=== PATIENT | male | born 1995 | race Caucasian/White ===

== ENCOUNTER 2022-05-08 15:33 | Inpatient (IN) | payer MEDICAID ==
[~2022-05-08] VITALS: Ht 180.3 cm; Wt 79.8 kg
[2022-05-08 17:30] LABS: HEMATOCRIT 45.6 % (42.0-52.0); HEMOGLOBIN 14.8 g/dl (13.5-17.5); MEAN CORPUSCULAR HEMOGLOBIN 28.4 pg (27.0-33.0); MEAN CORPUSCULAR HGB CONC 32.5 g/dl (32.0-36.5); MEAN CORPUSCULAR VOLUME 87.4 fl (80.0-96.0); PLATELET COUNT, AUTOMATED 231 10^3/uL (150-450); RED BLOOD COUNT 5.22 10^6/uL (4.30-6.10); WHITE BLOOD COUNT 6.8 10^3/uL (4.0-10.0)
[2022-05-08] MEDS ORDERED: LORazepam 2 MG TAB PO ONE (17:50)
[2022-05-08 17:51] LABS: BARBITURATES URINE NEGATIVE (NEGATIVE); BENZODIAZEPINES URINE NEGATIVE (NEGATIVE)
[2022-05-08 17:52] LABS: COCAINE METABOLITE URINE NEGATIVE (NEGATIVE); METHADONE URINE NEGATIVE (NEGATIVE); OPIATES URINE NEGATIVE (NEGATIVE); PHENCYCLIDINE URINE NEGATIVE (NEGATIVE)
[2022-05-08 17:53] LABS: ETHYL ALCOHOL (ETHANOL) 0.005 % (0.000-0.010)
[2022-05-08 17:55] LABS: ACETAMINOPHEN LEVEL < 2.0 UG/ML (10.0-20.0); ALBUMIN 3.9 G/DL (3.2-5.2); ALKALINE PHOSPHATASE 62 U/L (46-116); ALT/SGPT 19 U/L (7.0-40); AST/SGOT 17 U/L (<34); BILIRUBIN,DIRECT 0.1 MG/DL (<0.4); BILIRUBIN,TOTAL 0.4 MG/DL (0.3-1.2); BLOOD UREA NITROGEN 18 MG/DL (9-23); CALCIUM LEVEL 9.4 MG/DL (8.5-10.1); CARBON DIOXIDE LEVEL 30 MMOL/L (20-31); CHLORIDE LEVEL 103 MMOL/L (98-107); CREATININE FOR GFR 0.81 MG/DL (0.70-1.30); GLOMERULAR FILTRATION RATE > 60.0 (>60); GLUCOSE, FASTING 109 MG/DL (60-100); POTASSIUM SERUM 4.2 MMOL/L (3.5-5.1); SALICYLATE LEVEL < 3.0 MG/DL (<30); SODIUM LEVEL 138 MMOL/L (136-145); TOTAL PROTEIN 7.1 G/DL (5.7-8.2)
[2022-05-08 17:56] LABS: AMPHETAMINES LEVEL URINE POSITIVE (NEGATIVE); CANNABINOIDS URINE POSITIVE (NEGATIVE)
[2022-05-08 17:59] LABS: THYROID STIMULATING HORMONE 0.998 uIU/ML (0.55-4.78)
[2022-05-08 18:02] LABS: RSV AMPLIFICATION NEGATIVE (NEGATIVE)
[2022-05-08] MEDS ORDERED: HOME MED LIST COMPLETE! XX SCH (19:10)
[2022-05-09] MEDS ORDERED: MAALOX 30 ML SUSP *UDC PO PRN (00:15)
[2022-05-09] MEDS ORDERED: ACETAMINOPHEN TAB 650MG DOSE (2X325MG) PO PRN (00:15)
[2022-05-09] MEDS ORDERED: traZODone 50 MG TAB PO PRN (00:15)
[2022-05-09] MEDS ORDERED: OLANZapine ORAL DISINTEGRATING TAB 5MG PO PRN (00:15)
[2022-05-09] MEDS ORDERED: MOM 30ML SUSPENSION UDC PO PRN (00:15)
[2022-05-09 01:36] VITALS: BP 111/70
[2022-05-09 18:14] VITALS: BP 133/67
[2022-05-10] MEDS ORDERED: ONDANSETRON 4MG TAB PO PRN (08:05)
[2022-05-10] MEDS ORDERED: IBUPROFEN 600MG TAB PO PRN (08:05)
[2022-05-10] MEDS ORDERED: CYCLOBENZAPRINE 10MG TABLET PO PRN (08:05)
[2022-05-10] MEDS ORDERED: cloNIDine HCL 0.1 MG/24 HR PATCH TOP SCH (09:00)
[2022-05-10] MEDS ORDERED: INFLUENZA QUADRIVALENT PF VACCINE 0.5ML SYRINGE IM.IMMUN ONE (09:00)
[2022-05-10] MEDS: hydrOXYzine 50 MG TAB PO PRN (10:17)
[2022-05-10 10:20] VITALS: BP 130/81
[2022-05-10 15:11] VITALS: BP 130/60
[2022-05-11 06:27] VITALS: BP 138/76
[2022-05-11 19:53] VITALS: BP 154/67
[2022-05-11] MEDS: risperiDONE 3 MG TAB PO SCH (21:17)
[2022-05-12 06:23] VITALS: BP 130/74
[2022-05-12] MEDS: LORazepam 1 MG TAB PO PRN (14:37)
[2022-05-12 18:28] VITALS: BP 127/60
[2022-05-12] MEDS: risperiDONE 3 MG TAB PO SCH (20:59)
[2022-05-13 06:51] VITALS: BP 122/80
[2022-05-13] MEDS: LORazepam 1 MG TAB PO PRN ×2 (10:05→16:06)
[2022-05-13 18:08] VITALS: BP 114/79
[2022-05-13] MEDS: risperiDONE 3 MG TAB PO SCH (21:50)
[2022-05-14 06:44] VITALS: BP 115/69
[2022-05-14] MEDS: hydrOXYzine 50 MG TAB PO PRN (09:00)
[2022-05-14 16:20] VITALS: BP 130/68
[2022-05-14] MEDS: risperiDONE 3 MG TAB PO SCH (20:02)
[2022-05-15 06:28] VITALS: BP 108/59
[2022-05-15] MEDS ORDERED: RISP-10 PO (08:46)
[2022-05-15] MEDS ORDERED: INVE234I IM (08:46)
[2022-05-15] MEDS ORDERED: PALIPERIDONE PAL 234MG/1.5ML INJ (INVEGA)(FREE PSY INPT ONLY) IM ONE (09:00)
== END 2022-05-15 10:49 | disposition home or self-care (01) | DRG 753 ==
LOC: M ED 15:33 → M ED INP 05-09 00:11 → M PSY 05-09 01:34
PROVIDERS: ADMIT Psychiatry & Neurology Psychiatry; ATTEND Psychiatry & Neurology Psychiatry
DX: F31.9 Bipolar disorder, unspecified (principal); F17.200 Nicotine dependence, unspecified, uncomplicated; F15.90 Other stimulant use, unspecified, uncomplicated

== ENCOUNTER 2022-08-10 15:31 | Inpatient (IN) | payer MEDICAID, OTHER, SELFPAY ==
[~2022-08-10] VITALS: Ht 180.3 cm; Wt 84.1 kg
[~2022-08-10 15:31] MED LIST: INVE234I IM; RISP-10 PO
[2022-08-10 17:04] LABS: BASO % 0.3 % (0.0-1.0); HEMATOCRIT 42.3 % (42.0-52.0); HEMOGLOBIN 14.5 g/dl (13.5-17.5); LYMPH # 0.4 10^3/uL (1.5-5.0); LYMPH % 3.4 % (24.0-44.0); MEAN CORPUSCULAR HEMOGLOBIN 28.4 pg (27.0-33.0); MEAN CORPUSCULAR HGB CONC 34.3 g/dl (32.0-36.5); MEAN CORPUSCULAR VOLUME 82.8 fl (80.0-96.0); MONO # 0.9 10^3/uL (0.0-0.8); MONO % 7.5 % (2.0-8.0); NEUTROPHILS # 10.3 10^3/uL (1.5-8.5); NEUTROPHILS % 88.3 % (36.0-66.0); RED BLOOD COUNT 5.11 10^6/uL (4.30-6.10); WHITE BLOOD COUNT 11.6 10^3/uL (4.0-10.0)
[2022-08-10 17:41] LABS: RSV AMPLIFICATION NEGATIVE (NEGATIVE)
[2022-08-10] MEDS ORDERED: ACETAMINOPHEN 500 MG TAB PO ONE (17:45)
[2022-08-10 18:09] LABS: ALBUMIN 3.1 G/DL (3.2-5.2); ALKALINE PHOSPHATASE 62 U/L (46-116); ALT/SGPT 19 U/L (7.0-40); AST/SGOT 17 U/L (<34); BILIRUBIN,DIRECT 0.3 MG/DL (<0.4); BILIRUBIN,TOTAL 0.8 MG/DL (0.3-1.2); BLOOD UREA NITROGEN 14 MG/DL (9-23); CALCIUM LEVEL 8.1 MG/DL (8.5-10.1); CARBON DIOXIDE LEVEL 26 MMOL/L (20-31); CHLORIDE LEVEL 88 MMOL/L (98-107); CREATININE FOR GFR 0.92 MG/DL (0.70-1.30); GLOMERULAR FILTRATION RATE > 60.0 (>60); GLUCOSE, FASTING 128 MG/DL (60-100); POTASSIUM SERUM 3.9 MMOL/L (3.5-5.1); SODIUM LEVEL 122 MMOL/L (136-145); TOTAL PROTEIN 6.3 G/DL (5.7-8.2)
[2022-08-11] MEDS ORDERED: NS 2,520 ML in IV 1 EA IV ONE (01:55)
[2022-08-11] MEDS ORDERED: MIDAZOLAM INJ 2MG/2ML VIAL IV ONE (03:50)
[2022-08-11] MEDS ORDERED: HOME MED LIST COMPLETE! XX SCH (04:10)
[2022-08-11] MEDS ORDERED: OLAN2.5T25 PO (04:10)
[2022-08-11] MEDS ORDERED: VANCOMYCIN HCL 1,500 MG in IV FLUID PLACE HOLDER 1 EA IV ONE (04:20)
[2022-08-11] MEDS ORDERED: HEPARIN DRIP 25,000 UNITS in IV 1 EA IV SCH (04:20)
[2022-08-11] MEDS ORDERED: VANCOMYCIN HCL 750 MG, VIAL MATE ADAPTER 1 EACH in D5W 250 ML IV ONE ×2 (04:30→05:30)
[2022-08-11 05:35] LABS: INR 1.11; PROTHROMBIN TIME 14.5 SECONDS (12.5-14.5)
[2022-08-11 05:36] LABS: PARTIAL THROMBOPLASTIN TIME 20.4 SECONDS (24.8-34.2)
[2022-08-11] MEDS ORDERED: OLANZapine 2.5MG TABLET PO PRN (09:05)
[2022-08-11] MEDS ORDERED: VANCOMYCIN HCL 1,000 MG, VIAL MATE ADAPTER 1 EACH in NS 250 ML IV SCH (09:05)
[2022-08-11 10:30] VITALS: BP 122/76
[2022-08-11 10:31] LABS: HEMATOCRIT 38.6 % (42.0-52.0); HEMOGLOBIN 13.4 g/dl (13.5-17.5); MEAN CORPUSCULAR HEMOGLOBIN 28.5 pg (27.0-33.0); MEAN CORPUSCULAR HGB CONC 34.7 g/dl (32.0-36.5); MEAN CORPUSCULAR VOLUME 82.1 fl (80.0-96.0); WHITE BLOOD COUNT 9.1 10^3/uL (4.0-10.0)
[2022-08-11 10:56] LABS: PLATELET COUNT, AUTOMATED 87 10^3/uL (150-450)
[2022-08-11 11:03] LABS: ALBUMIN 2.6 G/DL (3.2-5.2); ALKALINE PHOSPHATASE 46 U/L (46-116); ALT/SGPT 14 U/L (7.0-40); AST/SGOT 13 U/L (<34); BILIRUBIN,TOTAL 0.6 MG/DL (0.3-1.2); BLOOD UREA NITROGEN 11 MG/DL (9-23); CALCIUM LEVEL 7.7 MG/DL (8.5-10.1); CARBON DIOXIDE LEVEL 26 MMOL/L (20-31); CHLORIDE LEVEL 98 MMOL/L (98-107); CREATININE FOR GFR 0.74 MG/DL (0.70-1.30); GLOMERULAR FILTRATION RATE > 60.0 (>60); GLUCOSE, FASTING 143 MG/DL (60-100); POTASSIUM SERUM 3.4 MMOL/L (3.5-5.1); SODIUM LEVEL 130 MMOL/L (136-145); TOTAL PROTEIN 5.4 G/DL (5.7-8.2)
[2022-08-11] MEDS ORDERED: KCL 10MEQ/100ML SWI (KRUN) 10 MEQ in IV 1 EA IV ONE (12:00)
[2022-08-11] MEDS: ACETAMINOPHEN TAB 650MG DOSE (2X325MG) PO PRN ×2 (12:09→20:22)
[2022-08-11] MEDS: NS 1,000 ML IV SCH ×2 (12:10→20:24)
[2022-08-11 12:19] LABS: ERYTHROCYTE SEDIMENTATION RATE 37 mm/hr (0-15)
[2022-08-11] MEDS: VANCOMYCIN HCL 750 MG, VIAL MATE ADAPTER 1 EACH in D5W 250 ML IV SCH ×2 (13:41→20:21)
[2022-08-11 14:00] VITALS: BP 121/78
[2022-08-11] MEDS: APIXABAN 5 MG TAB (ELIQUIS) PO SCH ×2 (15:55→20:23)
[2022-08-11] MEDS: MORPHINE 2 MG/ML 1ML VIAL IV PRN (16:49)
[2022-08-11] MEDS ORDERED: IPRATROPIUM 0.5MG/ALBUTEROL 2.5MG INH SOL UD 3ML (DUONEB) NEB ONE (19:35)
[2022-08-11] MEDS ORDERED: KETOROLAC 30 MG/ML 1ML VIAL IV ONE (20:25)
[2022-08-11 20:28] LABS: CK-MB VALUE MASS < 1.0 NG/ML (<3.6)
[2022-08-11 20:30] LABS: CPK CREATINE PHOSPHOKINASE 23 U/L (46-171); MB/CK RELATIVE INDEX 4.34 (< OR =4)
[2022-08-11] MEDS ORDERED: IPRATROPIUM 0.5MG/ALBUTEROL 2.5MG INH SOL UD 3ML (DUONEB) NEB PRN (20:30)
[2022-08-11] MEDS ORDERED: NS 1,000 ML IV ONE (20:35)
[2022-08-11 20:58] LABS: HIV 1&2 SCREEN CENTAUR NEGATIVE (NEGATIVE)
[2022-08-11 21:06] LABS: HEPATITIS C VIRUS ABY INDEX 0.5 INDEX (<0.8)
[2022-08-11 22:00] VITALS: BP 107/61
[2022-08-12 04:31] LABS: HEMATOCRIT 36.4 % (42.0-52.0); HEMOGLOBIN 12.4 g/dl (13.5-17.5); MEAN CORPUSCULAR HEMOGLOBIN 28.6 pg (27.0-33.0); MEAN CORPUSCULAR HGB CONC 34.1 g/dl (32.0-36.5); MEAN CORPUSCULAR VOLUME 83.9 fl (80.0-96.0); RED BLOOD COUNT 4.34 10^6/uL (4.30-6.10); WHITE BLOOD COUNT 5.9 10^3/uL (4.0-10.0)
[2022-08-12 04:32] LABS: PLATELET COUNT, AUTOMATED 83 10^3/uL (150-450)
[2022-08-12 04:35] LABS: ERYTHROCYTE SEDIMENTATION RATE 34 mm/hr (0-15)
[2022-08-12] MEDS ORDERED: KETOROLAC 30 MG/ML 1ML VIAL IV ONE (04:50)
[2022-08-12 05:00] LABS: ALBUMIN 2.2 G/DL (3.2-5.2); ALKALINE PHOSPHATASE 38 U/L (46-116); ALT/SGPT 15 U/L (7.0-40); AST/SGOT 13 U/L (<34); BILIRUBIN,TOTAL 0.4 MG/DL (0.3-1.2); BLOOD UREA NITROGEN 10 MG/DL (9-23); CALCIUM LEVEL 7.5 MG/DL (8.5-10.1); CARBON DIOXIDE LEVEL 25 MMOL/L (20-31); CHLORIDE LEVEL 104 MMOL/L (98-107); CREATININE FOR GFR 0.72 MG/DL (0.70-1.30); GLOMERULAR FILTRATION RATE > 60.0 (>60); GLUCOSE, FASTING 101 MG/DL (60-100); MAGNESIUM LEVEL 1.8 MG/DL (1.8-2.4); POTASSIUM SERUM 3.8 MMOL/L (3.5-5.1); SODIUM LEVEL 135 MMOL/L (136-145); TOTAL PROTEIN 4.9 G/DL (5.7-8.2)
[2022-08-12] MEDS: VANCOMYCIN HCL 750 MG, VIAL MATE ADAPTER 1 EACH in D5W 250 ML IV SCH ×3 (05:00→21:29)
[2022-08-12] MEDS: LIDOCAINE 5% (LIDODERM) PATCH TD SCH (05:08)
[2022-08-12 06:00] VITALS: BP 108/61
[2022-08-12] MEDS: VANCOMYCIN HCL 500 MG in D5W MINI-BAG PLUS 100 ML IV SCH ×3 (07:15→22:40)
[2022-08-12] MEDS: NS 1,000 ML IV SCH (08:09)
[2022-08-12] MEDS: SENOKOT S TAB PO SCH (09:40)
[2022-08-12] MEDS: APIXABAN 5 MG TAB (ELIQUIS) PO SCH ×2 (09:40→21:28)
[2022-08-12 14:00] VITALS: BP 128/77
[2022-08-12 21:08] VITALS: BP 126/75
[2022-08-13] MEDS: VANCOMYCIN HCL 500 MG in D5W MINI-BAG PLUS 100 ML IV SCH (04:25)
[2022-08-13] MEDS: VANCOMYCIN HCL 750 MG, VIAL MATE ADAPTER 1 EACH in D5W 250 ML IV SCH (04:25)
[2022-08-13 04:32] LABS: BASO % 0.4 % (0.0-1.0); EOS # 0.1 10^3/uL (0.0-0.5); EOS % 0.7 % (0.0-3.0); HEMATOCRIT 34.9 % (42.0-52.0); HEMOGLOBIN 11.8 g/dl (13.5-17.5); LYMPH # 1.2 10^3/uL (1.5-5.0); LYMPH % 17.2 % (24.0-44.0); MEAN CORPUSCULAR HEMOGLOBIN 28.4 pg (27.0-33.0); MEAN CORPUSCULAR HGB CONC 33.8 g/dl (32.0-36.5); MEAN CORPUSCULAR VOLUME 83.9 fl (80.0-96.0); MONO # 1.2 10^3/uL (0.0-0.8); MONO % 16.2 % (2.0-8.0); NEUTROPHILS # 4.7 10^3/uL (1.5-8.5); NEUTROPHILS % 64.7 % (36.0-66.0); PLATELET COUNT, AUTOMATED 116 10^3/uL (150-450); RED BLOOD COUNT 4.16 10^6/uL (4.30-6.10); WHITE BLOOD COUNT 7.2 10^3/uL (4.0-10.0)
[2022-08-13 04:48] LABS: ERYTHROCYTE SEDIMENTATION RATE 59 mm/hr (0-15)
[2022-08-13 05:01] LABS: ALBUMIN 2.1 G/DL (3.2-5.2); ALKALINE PHOSPHATASE 38 U/L (46-116); ALT/SGPT 19 U/L (7.0-40); AST/SGOT 17 U/L (<34); BILIRUBIN,TOTAL 0.5 MG/DL (0.3-1.2); BLOOD UREA NITROGEN 7 MG/DL (9-23); CALCIUM LEVEL 7.2 MG/DL (8.5-10.1); CARBON DIOXIDE LEVEL 28 MMOL/L (20-31); CHLORIDE LEVEL 103 MMOL/L (98-107); CREATININE FOR GFR 0.67 MG/DL (0.70-1.30); GLOMERULAR FILTRATION RATE > 60.0 (>60); GLUCOSE, FASTING 107 MG/DL (60-100); MAGNESIUM LEVEL 1.5 MG/DL (1.8-2.4); POTASSIUM SERUM 3.5 MMOL/L (3.5-5.1); SODIUM LEVEL 137 MMOL/L (136-145); TOTAL PROTEIN 5.1 G/DL (5.7-8.2); VANCOMYCIN LEVEL TROUGH 6.3 UG/ML (10.0-20.0)
[2022-08-13] MEDS: LIDOCAINE 5% (LIDODERM) PATCH TD SCH (05:48)
[2022-08-13 05:55] VITALS: BP 122/72
[2022-08-13] MEDS ORDERED: MAGNESIUM OXIDE 400MG TAB (MAG-OX) PO ONE (07:50)
[2022-08-13] MEDS: SENOKOT S TAB PO SCH ×2 (08:40→22:36)
[2022-08-13] MEDS: APIXABAN 5 MG TAB (ELIQUIS) PO SCH ×2 (08:40→22:36)
[2022-08-13] MEDS: MORPHINE 2 MG/ML 1ML VIAL IV PRN ×2 (08:48→22:49)
[2022-08-13] MEDS: BACTRIM 160MG/800MG DS TAB PO SCH ×2 (11:16→22:36)
[2022-08-13 14:00] VITALS: BP 140/75
[2022-08-13 22:40] VITALS: BP 110/65
[2022-08-14] MEDS: LIDOCAINE 5% (LIDODERM) PATCH TD SCH (06:55)
[2022-08-14 06:56] VITALS: BP 111/66
[2022-08-14 06:59] LABS: BASO % 0.4 % (0.0-1.0); EOS # 0.1 10^3/uL (0.0-0.5); EOS % 1.4 % (0.0-3.0); HEMATOCRIT 36.9 % (42.0-52.0); LYMPH # 1.4 10^3/uL (1.5-5.0); LYMPH % 19.1 % (24.0-44.0); MEAN CORPUSCULAR HEMOGLOBIN 27.9 pg (27.0-33.0); MEAN CORPUSCULAR HGB CONC 32.5 g/dl (32.0-36.5); MEAN CORPUSCULAR VOLUME 85.8 fl (80.0-96.0); MONO # 0.9 10^3/uL (0.0-0.8); NEUTROPHILS # 4.7 10^3/uL (1.5-8.5); NEUTROPHILS % 65.3 % (36.0-66.0); PLATELET COUNT, AUTOMATED 147 10^3/uL (150-450); WHITE BLOOD COUNT 7.2 10^3/uL (4.0-10.0)
[2022-08-14 07:29] LABS: ALBUMIN 2.2 G/DL (3.2-5.2); ALKALINE PHOSPHATASE 39 U/L (46-116); ALT/SGPT 28 U/L (7.0-40); AST/SGOT 20 U/L (<34); BILIRUBIN,TOTAL 0.5 MG/DL (0.3-1.2); BLOOD UREA NITROGEN 8 MG/DL (9-23); CARBON DIOXIDE LEVEL 27 MMOL/L (20-31); CHLORIDE LEVEL 101 MMOL/L (98-107); CREATININE FOR GFR 0.69 MG/DL (0.70-1.30); GLOMERULAR FILTRATION RATE > 60.0 (>60); GLUCOSE, FASTING 96 MG/DL (60-100); MAGNESIUM LEVEL 1.6 MG/DL (1.8-2.4); POTASSIUM SERUM 3.7 MMOL/L (3.5-5.1); SODIUM LEVEL 136 MMOL/L (136-145); TOTAL PROTEIN 5.3 G/DL (5.7-8.2)
[2022-08-14] MEDS: LACTULOSE 20GM/30ML SYRUP UDC PO ONE ×2 (07:55→09:22)
[2022-08-14] MEDS ORDERED: PERCOCET 5MG/325MG TAB PO PRN ×2 (08:00)
[2022-08-14] MEDS: SENOKOT S TAB PO SCH ×2 (09:00→09:22)
[2022-08-14] MEDS ORDERED: MAG SULF 1GM/100ML (MAG RUN) 1 GM in IV 1 EA IV ONE (09:00)
[2022-08-14] MEDS ORDERED: MAGNESIUM OXIDE 400MG TAB (MAG-OX) PO SCH (09:00)
[2022-08-14 09:07] VITALS: BP 111/67
[2022-08-14] MEDS: BACTRIM 160MG/800MG DS TAB PO SCH (09:22)
[2022-08-14] MEDS: APIXABAN 5 MG TAB (ELIQUIS) PO SCH (09:22)
[2022-08-14] MEDS: ACETAMINOPHEN TAB 650MG DOSE (2X325MG) PO PRN (09:23)
[2022-08-14] MEDS ORDERED: PERCOCET PO (09:33)
[2022-08-14] MEDS ORDERED: BACTDSTA PO (09:33)
[2022-08-14] MEDS ORDERED: ACET1TAB55 PO (09:33)
[2022-08-14] MEDS ORDERED: MAGN400T2 PO (09:33)
[2022-08-14] MEDS ORDERED: ELIQ5TAB PO (09:39)
== END 2022-08-14 12:25 | disposition home health service (06) | DRG 720 ==
LOC: M ED 15:31 → M ED INP 08-11 09:05 → ENRESERV 08-11 09:52 → M MS5PR 08-11 10:25
PROVIDERS: ADMIT Family Medicine; ATTEND Internal Medicine
DX: A41.9 Sepsis, unspecified organism (principal); I82.622 Acute embolism and thrombosis of deep veins of left upper extremity; E83.42 Hypomagnesemia; E87.1 Hypo-osmolality and hyponatremia; F19.10 Other psychoactive substance abuse, uncomplicated; J45.909 Unspecified asthma, uncomplicated; L03.114 Cellulitis of left upper limb

== ENCOUNTER 2022-09-27 17:41 | Emergency (ER) | payer MEDICAID, OTHER ==
[~2022-09-27] VITALS: Ht 180.3 cm; Wt 88.3 kg
[~2022-09-27 17:41] MED LIST changes: +ACET1TAB55 PO; +BACTDSTA PO; +ELIQ5TAB PO; +MAGN400T2 PO; +OLAN2.5T25 PO; +PERCOCET PO
[2022-09-27 17:42] VITALS: BP 146/82
[2022-09-27] MEDS ORDERED: SERT50TA29 (17:49)
== END 2022-09-27 19:55 | disposition left against medical advice (07) ==
LOC: M ED 17:41
DX: Z76.0 Encounter for issue of repeat prescription (principal); Z53.21 Procedure and treatment not carried out due to patient leaving prior to being seen by health care provider

== ENCOUNTER 2022-09-29 17:22 | Emergency (ER) | payer MEDICAID, OTHER ==
[~2022-09-29] VITALS: Ht 180.3 cm; Wt 86.3 kg
[~2022-09-29 17:22] MED LIST changes: +SERT50TA29
[2022-09-29 17:23] VITALS: BP 130/82
[2022-09-29] MEDS ORDERED: ELIQ5TAB PO (19:34)
== END 2022-09-29 19:27 | disposition left against medical advice (07) ==
LOC: M ED 17:22
DX: R22.41 Localized swelling, mass and lump, right lower limb (principal); Z76.0 Encounter for issue of repeat prescription; Z53.9 Procedure and treatment not carried out, unspecified reason; Z86.718 Personal history of other venous thrombosis and embolism; Z79.899 Other long term (current) drug therapy

== ENCOUNTER 2022-12-11 02:25 | Inpatient (IN) | payer OTHER ==
[~2022-12-11] VITALS: Ht 180.3 cm; Wt 81.8 kg
[~2022-12-11 02:25] MED LIST changes: -SERT50TA29; +SERT50TA29 PO
[2022-12-11 04:11] LABS: HEMATOCRIT 39.8 % (42.0-52.0); HEMOGLOBIN 13.1 g/dl (13.5-17.5); MEAN CORPUSCULAR HEMOGLOBIN 28.1 pg (27.0-33.0); MEAN CORPUSCULAR HGB CONC 32.9 g/dl (32.0-36.5); MEAN CORPUSCULAR VOLUME 85.4 fl (80.0-96.0); PLATELET COUNT, AUTOMATED 199 10^3/uL (150-450); RED BLOOD COUNT 4.66 10^6/uL (4.30-6.10); WHITE BLOOD COUNT 10.3 10^3/uL (4.0-10.0)
[2022-12-11 04:30] LABS: ETHYL ALCOHOL (ETHANOL) < 0.003 % (0.000-0.010)
[2022-12-11 04:32] LABS: ACETAMINOPHEN LEVEL < 2.0 UG/ML (10.0-20.0); ALBUMIN 3.6 G/DL (3.2-5.2); ALKALINE PHOSPHATASE 64 U/L (46-116); ALT/SGPT 17 U/L (7.0-40); AST/SGOT 9 U/L (<34); BILIRUBIN,DIRECT 0.1 MG/DL (<0.4); BILIRUBIN,TOTAL 0.3 MG/DL (0.3-1.2); BLOOD UREA NITROGEN 13 MG/DL (9-23); CALCIUM LEVEL 8.7 MG/DL (8.5-10.1); CARBON DIOXIDE LEVEL 26 MMOL/L (20-31); CHLORIDE LEVEL 106 MMOL/L (98-107); CREATININE FOR GFR 0.77 MG/DL (0.70-1.30); GLOMERULAR FILTRATION RATE > 60.0 (>60); GLUCOSE, FASTING 113 MG/DL (60-100); POTASSIUM SERUM 4.2 MMOL/L (3.5-5.1); SALICYLATE LEVEL < 3.0 MG/DL (<30); SODIUM LEVEL 139 MMOL/L (136-145); TOTAL PROTEIN 6.7 G/DL (5.7-8.2)
[2022-12-11 04:35] LABS: THYROID STIMULATING HORMONE 0.674 uIU/ML (0.55-4.78)
[2022-12-11 04:45] LABS: PHENCYCLIDINE URINE NEGATIVE (NEGATIVE)
[2022-12-11 04:46] LABS: BARBITURATES URINE NEGATIVE (NEGATIVE); BENZODIAZEPINES URINE NEGATIVE (NEGATIVE); CANNABINOIDS URINE NEGATIVE (NEGATIVE); COCAINE METABOLITE URINE NEGATIVE (NEGATIVE); METHADONE URINE NEGATIVE (NEGATIVE); OPIATES URINE NEGATIVE (NEGATIVE)
[2022-12-11 04:49] LABS: AMPHETAMINES LEVEL URINE POSITIVE (NEGATIVE)
[2022-12-11] MEDS ORDERED: MED REC IN PROGRESS XX SCH (13:15)
[2022-12-11] MEDS ORDERED: MAGN400T35 PO (14:09)
[2022-12-11] MEDS ORDERED: HOME MED LIST COMPLETE! XX SCH (14:10)
[2022-12-12] MEDS ORDERED: OLANZapine 2.5MG TABLET PO PRN (08:30)
[2022-12-12] MEDS ORDERED: SERTRALINE HCL 50 MG TAB PO SCH (09:00)
[2022-12-12] MEDS ORDERED: MOM 30ML SUSPENSION UDC PO PRN (11:25)
[2022-12-12] MEDS ORDERED: ACETAMINOPHEN TAB 650MG DOSE (2X325MG) PO PRN (11:25)
[2022-12-12] MEDS ORDERED: IBUPROFEN 400MG TAB PO PRN (11:25)
[2022-12-12] MEDS ORDERED: diphenhydrAMINE 25MG CAP PO PRN (11:25)
[2022-12-12] MEDS ORDERED: MAALOX 30 ML SUSP *UDC PO PRN (11:25)
[2022-12-12 14:40] VITALS: BP 117/60; TEMP 97.5; O2SAT 99
[2022-12-12] MEDS: NICOTINE 21MG/24HR 1 EA TRANSDERMAL TD SCH (15:27)
[2022-12-12] MEDS: MAGNESIUM OXIDE 400MG TAB (MAG-OX) PO SCH ×2 (15:27→21:14)
[2022-12-12] MEDS: OLANZapine 2.5MG TABLET PO PRN (21:14)
[2022-12-12] MEDS: traZODone 50 MG TAB PO PRN (21:14)
[2022-12-13 06:46] VITALS: BP 126/74; TEMP 97.7; O2SAT 98
[2022-12-13] MEDS ORDERED: SERTRALINE HCL 50 MG TAB PO SCH (09:00)
[2022-12-13] MEDS: NICOTINE 21MG/24HR 1 EA TRANSDERMAL TD SCH (09:00)
[2022-12-13 09:19] LABS: PROCALCITONIN <0.04 ng/ml
[2022-12-13] MEDS: MAGNESIUM OXIDE 400MG TAB (MAG-OX) PO SCH ×2 (09:53→22:07)
[2022-12-13] MEDS: OLANZapine 2.5MG TABLET PO PRN (09:54)
[2022-12-13] MEDS: APIXABAN 5 MG TAB (ELIQUIS) PO SCH ×2 (13:19→22:08)
[2022-12-13 14:20] LABS: INR 0.95; PARTIAL THROMBOPLASTIN TIME 31.6 SECONDS (24.8-34.2); PROTHROMBIN TIME 12.9 SECONDS (12.5-14.5)
[2022-12-13] MEDS: traZODone 50 MG TAB PO PRN (22:07)
[2022-12-13] MEDS: busPIRone 5 MG TAB PO SCH (22:07)
[2022-12-14 06:44] VITALS: BP 143/66; TEMP 97.7; O2SAT 95
[2022-12-14 07:08] LABS: CHOLESTEROL RISK RATIO 3.23 (<5); HDL CHOLESTEROL 45.1 MG/DL (>40); LDL CHOLESTEROL 87.5 MG/DL (<100); NON-HDL-C 100.9 MG/DL
[2022-12-14] MEDS: NICOTINE 21MG/24HR 1 EA TRANSDERMAL TD SCH (09:00)
[2022-12-14] MEDS ORDERED: SERTRALINE HCL 50 MG TAB PO SCH (09:00)
[2022-12-14] MEDS: APIXABAN 5 MG TAB (ELIQUIS) PO SCH ×2 (09:39→21:30)
[2022-12-14] MEDS: DOXYCYCLINE HYCLATE 100MG TABLET PO SCH ×2 (09:39→21:29)
[2022-12-14] MEDS: MAGNESIUM OXIDE 400MG TAB (MAG-OX) PO SCH ×2 (09:39→21:30)
[2022-12-14] MEDS: OLANZapine 2.5MG TABLET PO SCH ×2 (09:39→21:29)
[2022-12-14] MEDS: busPIRone 5 MG TAB PO SCH (09:39)
[2022-12-14] MEDS: SERTRALINE HCL 25 MG TABLET PO SCH (09:42)
[2022-12-14 16:23] VITALS: BP 119/72; TEMP 98.5; O2SAT 97
[2022-12-14] MEDS: busPIRone 10 MG TAB PO SCH (21:30)
[2022-12-14] MEDS: traZODone 50 MG TAB PO PRN (21:30)
[2022-12-15 06:43] VITALS: BP 138/82; TEMP 96.8; O2SAT 98
[2022-12-15] MEDS: NICOTINE 21MG/24HR 1 EA TRANSDERMAL TD SCH (09:00)
[2022-12-15] MEDS: APIXABAN 5 MG TAB (ELIQUIS) PO SCH ×2 (09:03→21:15)
[2022-12-15] MEDS: SERTRALINE HCL 25 MG TABLET PO SCH (09:03)
[2022-12-15] MEDS: busPIRone 10 MG TAB PO SCH ×2 (09:03→21:15)
[2022-12-15] MEDS: DOXYCYCLINE HYCLATE 100MG TABLET PO SCH ×2 (09:04→21:15)
[2022-12-15] MEDS: MAGNESIUM OXIDE 400MG TAB (MAG-OX) PO SCH ×2 (09:04→21:15)
[2022-12-15] MEDS: OLANZapine 2.5MG TABLET PO SCH ×2 (09:04→21:15)
[2022-12-15 16:58] VITALS: BP 125/75; TEMP 97.8; O2SAT 100
[2022-12-15] MEDS: traZODone 50 MG TAB PO PRN (21:15)
[2022-12-16 06:31] VITALS: BP 159/81; TEMP 96.8; O2SAT 99
[2022-12-16] MEDS: NICOTINE 21MG/24HR 1 EA TRANSDERMAL TD SCH (09:00)
[2022-12-16] MEDS: DOXYCYCLINE HYCLATE 100MG TABLET PO SCH ×2 (09:11→20:09)
[2022-12-16] MEDS: APIXABAN 5 MG TAB (ELIQUIS) PO SCH ×2 (09:12→20:09)
[2022-12-16] MEDS: SERTRALINE HCL 25 MG TABLET PO SCH (09:12)
[2022-12-16] MEDS: OLANZapine 2.5MG TABLET PO SCH ×2 (09:13→20:09)
[2022-12-16] MEDS: busPIRone 10 MG TAB PO SCH ×2 (09:13→20:09)
[2022-12-16] MEDS: MAGNESIUM OXIDE 400MG TAB (MAG-OX) PO SCH ×2 (09:13→20:10)
[2022-12-16 18:03] VITALS: BP 151/87; TEMP 97.1
[2022-12-16] MEDS: traZODone 50 MG TAB PO PRN (20:10)
[2022-12-17 06:32] VITALS: BP 117/64; TEMP 97.9; O2SAT 97
[2022-12-17] MEDS: OLANZapine 2.5MG TABLET PO SCH ×2 (08:16→20:29)
[2022-12-17] MEDS: MAGNESIUM OXIDE 400MG TAB (MAG-OX) PO SCH ×2 (08:16→20:29)
[2022-12-17] MEDS: SERTRALINE HCL 25 MG TABLET PO SCH (08:17)
[2022-12-17] MEDS: APIXABAN 5 MG TAB (ELIQUIS) PO SCH ×2 (08:17→20:29)
[2022-12-17] MEDS: DOXYCYCLINE HYCLATE 100MG TABLET PO SCH ×2 (08:17→20:29)
[2022-12-17] MEDS: busPIRone 10 MG TAB PO SCH ×2 (08:17→20:29)
[2022-12-17] MEDS: NICOTINE 21MG/24HR 1 EA TRANSDERMAL TD SCH (08:20)
[2022-12-17 17:37] VITALS: BP 128/66; TEMP 97.7; O2SAT 100
[2022-12-17] MEDS: traZODone 50 MG TAB PO PRN (20:29)
[2022-12-18 06:05] VITALS: BP 121/68; TEMP 97.3; O2SAT 95
[2022-12-18] MEDS: OLANZapine 2.5MG TABLET PO SCH (08:20)
[2022-12-18] MEDS: DOXYCYCLINE HYCLATE 100MG TABLET PO SCH (08:20)
[2022-12-18] MEDS: MAGNESIUM OXIDE 400MG TAB (MAG-OX) PO SCH (08:21)
[2022-12-18] MEDS: SERTRALINE HCL 25 MG TABLET PO SCH (08:21)
[2022-12-18] MEDS: APIXABAN 5 MG TAB (ELIQUIS) PO SCH (08:21)
[2022-12-18] MEDS: busPIRone 10 MG TAB PO SCH (08:21)
[2022-12-18] MEDS: NICOTINE 21MG/24HR 1 EA TRANSDERMAL TD SCH (08:23)
[2022-12-18] MEDS ORDERED: BUSP10TA PO (09:36)
[2022-12-18] MEDS ORDERED: MAGN400T35 PO (09:36)
[2022-12-18] MEDS ORDERED: DOXY100T PO (09:36)
[2022-12-18] MEDS ORDERED: ELIQ5TAB PO ×3 (09:36→10:34)
[2022-12-18] MEDS ORDERED: SERT25TA21 PO (09:36)
[2022-12-18] MEDS ORDERED: TRAZ-252 PO (09:36)
[2022-12-18] MEDS ORDERED: OLAN1TAB16 PO (09:36)
[2022-12-20] MEDS ORDERED: APIXABAN 5 MG TAB (ELIQUIS) PO SCH (09:00)
== END 2022-12-18 14:52 | disposition home or self-care (01) | DRG 776 ==
LOC: M ED 02:25 → M ED INP 12-12 13:01 → M PSY 12-12 14:44
PROVIDERS: ADMIT Student in an Organized Health Care Education/Training Program; ATTEND Student in an Organized Health Care Education/Training Program
DX: F15.14 Other stimulant abuse with stimulant-induced mood disorder (principal); R45.851 Suicidal ideations; I82.C12 Acute embolism and thrombosis of left internal jugular vein; F31.9 Bipolar disorder, unspecified; F41.1 Generalized anxiety disorder; F43.10 Post-traumatic stress disorder, unspecified; F17.210 Nicotine dependence, cigarettes, uncomplicated; Z56.0 Unemployment, unspecified; Z79.899 Other long term (current) drug therapy; Z71.6 Tobacco abuse counseling; Z20.822 Contact with and (suspected) exposure to COVID-19

== ENCOUNTER 2023-04-12 16:43 | Emergency (ER) | payer OTHER ==
[~2023-04-12] VITALS: Ht 180.3 cm; Wt 88.7 kg
[~2023-04-12 16:43] MED LIST changes: +BUSP10TA PO; +DOXY100T PO; +MAGN400T35 PO; +OLAN1TAB16 PO; +SERT25TA21 PO; +TRAZ-252 PO
[2023-04-12 16:46] VITALS: BP 141/92; TEMP 98.7; O2SAT 94
[2023-04-12 17:45] LABS: RSV AMPLIFICATION NEGATIVE (NEGATIVE)
[2023-04-12] MEDS ORDERED: ALBU6.7H6 INH (18:33)
[2023-04-12] MEDS ORDERED: BENZ200C70 PO (18:33)
[2023-04-12] MEDS ORDERED: SERT25TA21 PO (18:33)
[2023-04-12] MEDS ORDERED: ELIQ5TAB PO (18:33)
== END 2023-04-12 18:49 | disposition home or self-care (01) ==
LOC: M ED 16:43
DX: J40 Bronchitis, not specified as acute or chronic (principal); Z76.0 Encounter for issue of repeat prescription; Z11.52 Encounter for screening for COVID-19; F31.9 Bipolar disorder, unspecified; Z79.01 Long term (current) use of anticoagulants; Z79.899 Other long term (current) drug therapy

== ENCOUNTER 2023-04-23 18:16 | Emergency (ER) | payer OTHER ==
[~2023-04-23] VITALS: Ht 180.3 cm; Wt 91.7 kg
[2023-04-23 18:16] VITALS: BP 155/68; TEMP 97.8; O2SAT 100
[~2023-04-23 18:16] MED LIST changes: +ALBU6.7H6 INH; +BENZ200C70 PO
== END 2023-04-23 23:47 | disposition left against medical advice (07) ==
LOC: M ED 18:16
DX: Z53.21 Procedure and treatment not carried out due to patient leaving prior to being seen by health care provider (principal)

== ENCOUNTER 2023-07-20 21:51 | Emergency (ER) | payer OTHER ==
[~2023-07-20] VITALS: Ht 180.3 cm; Wt 98.2 kg
[2023-07-20 22:54] LABS: HEMATOCRIT 42.5 % (42.0-52.0); HEMOGLOBIN 14.5 g/dl (13.5-17.5); MEAN CORPUSCULAR HEMOGLOBIN 29.1 pg (27.0-33.0); MEAN CORPUSCULAR HGB CONC 34.1 g/dl (32.0-36.5); MEAN CORPUSCULAR VOLUME 85.3 fl (80.0-96.0); PLATELET COUNT, AUTOMATED 251 10^3/uL (150-450); RED BLOOD COUNT 4.98 10^6/uL (4.30-6.10); WHITE BLOOD COUNT 15.1 10^3/uL (4.0-10.0)
[2023-07-20] MEDS: LORazepam 2 MG TAB PO STA (23:15)
[2023-07-20 23:24] LABS: BARBITURATES URINE NEGATIVE (NEGATIVE); BENZODIAZEPINES URINE NEGATIVE (NEGATIVE); CANNABINOIDS URINE NEGATIVE (NEGATIVE); COCAINE METABOLITE URINE NEGATIVE (NEGATIVE); METHADONE URINE NEGATIVE (NEGATIVE); OPIATES URINE NEGATIVE (NEGATIVE); PHENCYCLIDINE URINE NEGATIVE (NEGATIVE)
[2023-07-20 23:25] LABS: ETHYL ALCOHOL (ETHANOL) < 0.003 % (0.000-0.010)
[2023-07-20 23:27] LABS: ALBUMIN 4.3 G/DL (3.2-5.2); ALKALINE PHOSPHATASE 52 U/L (46-116); ALT/SGPT 48 U/L (7.0-40); AMPHETAMINES LEVEL URINE POSITIVE (NEGATIVE); AST/SGOT 49 U/L (<34); BILIRUBIN,DIRECT 0.3 MG/DL (<0.4); BILIRUBIN,TOTAL 0.7 MG/DL (0.3-1.2); BLOOD UREA NITROGEN 17 MG/DL (9-23); CALCIUM LEVEL 9.2 MG/DL (8.5-10.1); CARBON DIOXIDE LEVEL 25 MMOL/L (20-31); CHLORIDE LEVEL 106 MMOL/L (98-107); CREATININE FOR GFR 0.86 MG/DL (0.70-1.30); GLOMERULAR FILTRATION RATE > 60.0 (>60); GLUCOSE, FASTING 119 MG/DL (60-100); POTASSIUM SERUM 4.3 MMOL/L (3.5-5.1); SALICYLATE LEVEL < 3.0 MG/DL (<30); SODIUM LEVEL 139 MMOL/L (136-145); TOTAL PROTEIN 7.3 G/DL (5.7-8.2)
[2023-07-20 23:29] LABS: THYROID STIMULATING HORMONE 1.549 uIU/ML (0.55-4.78)
[2023-07-20 23:55] LABS: HIV 1&2 SCREEN NEGATIVE (NEGATIVE)
[2023-07-21 03:12] LABS: APPEARANCE, URINE CLEAR (CLEAR); BACTERIA, URINE AUTO NEGATIVE (NEGATIVE); BILIRUBIN, URINE AUTO NEGATIVE (NEGATIVE); BLOOD, URINE BLOOD NEGATIVE (NEGATIVE); COLOR, URINE AMBER (YELLOW); GLUCOSE, URINE (UA) AUTO NEGATIVE (NEGATIVE); KETONE, URINE AUTO 1+ mg/dL (NEGATIVE); LEUKOCYTE ESTERASE, URINE AUTO NEGATIVE (NEGATIVE); NITRITE, URINE AUTO POSITIVE (NEGATIVE); PROTEIN, URINE AUTO 1+ mg/dL (NEGATIVE); RBC, URINE AUTO 1 /HPF (0-3); SPECIFIC GRAVITY URINE AUTO 1.027 (1.002-1.035); SQUAMOUS EPITHELIAL CELL UR AU 0 /HPF (0-6); WBC, URINE AUTO 0 /HPF (0-3)
[2023-07-21] MEDS: LORazepam 2 MG TAB PO STA (04:44)
[2023-07-21] MEDS ORDERED: HOME MED LIST COMPLETE! XX SCH (05:20)
[2023-07-21] MEDS: ACETAMINOPHEN TAB 650MG DOSE (2X325MG) PO ONE (05:29)
[2023-07-21] MEDS: NS 1,000 ML IV ONE (05:30)
[2023-07-21] MEDS: LORazepam 2 MG/ML 1ML VIAL IV STA (06:31)
[2023-07-21] MEDS ORDERED: BACT800T5 PO (11:43)
[2023-07-21] MEDS: BACTRIM 160MG/800MG DS TAB PO ONE (11:52)
[2023-07-21 11:54] VITALS: BP 121/66; TEMP 98.1; O2SAT 98
[2023-07-22] MEDS ORDERED: AMOX875T2 PO (06:49)
== END 2023-07-21 12:37 | disposition home or self-care (01) ==
LOC: M ED 21:51
DX: F19.10 Other psychoactive substance abuse, uncomplicated (principal); F31.9 Bipolar disorder, unspecified; F32.A Depression, unspecified; J45.909 Unspecified asthma, uncomplicated; F41.9 Anxiety disorder, unspecified; Z86.711 Personal history of pulmonary embolism; Z79.01 Long term (current) use of anticoagulants
CPT/HCPCS: 71045; 80048; 80076; 80143; 80307; 81001; 82077; 84443; 85027; 87040; 87389; 87635; 93005; 96374; 99291; J2060

== ENCOUNTER 2023-07-21 23:03 | Emergency (ER) | payer OTHER ==
[~2023-07-21] VITALS: Ht 180.3 cm; Wt 90.5 kg
[~2023-07-21 23:03] MED LIST changes: +BACT800T5 PO
[2023-07-22] MEDS ORDERED: DALBAVANCIN 1,500 MG in D5W 250 ML IV ONE (05:30)
[2023-07-22] MEDS: PIPERACILLIN/TAZOBACTAM SOD 4.5 GM in D5W MINI-BAG PLUS 50 ML IV ONE (06:41)
[2023-07-22] MEDS ORDERED: AMOX875T2 PO (06:49)
[2023-07-22 07:52] VITALS: BP 120/55; TEMP 98; O2SAT 95
== END 2023-07-22 07:56 | disposition home or self-care (01) ==
LOC: M ED 23:03
DX: L03.012 Cellulitis of left finger (principal); F19.10 Other psychoactive substance abuse, uncomplicated; Z79.2 Long term (current) use of antibiotics
CPT/HCPCS: 73130; 96365; 99284; J2543

== ENCOUNTER 2023-09-30 00:01 | Inpatient (IN) | payer OTHER ==
[~2023-09-30] VITALS: Ht 180.3 cm; Wt 90.9 kg
[~2023-09-30 00:01] MED LIST changes: +AMOX875T2 PO; -RISP-10 PO; +RISP3TAB77 PO
[2023-09-30 00:49] LABS: HEMATOCRIT 44.4 % (42.0-52.0); HEMOGLOBIN 14.9 g/dl (13.5-17.5); MEAN CORPUSCULAR HEMOGLOBIN 29.4 pg (27.0-33.0); MEAN CORPUSCULAR HGB CONC 33.6 g/dl (32.0-36.5); MEAN CORPUSCULAR VOLUME 87.7 fl (80.0-96.0); PLATELET COUNT, AUTOMATED 220 10^3/uL (150-450); RED BLOOD COUNT 5.06 10^6/uL (4.30-6.10); WHITE BLOOD COUNT 10.2 10^3/uL (4.0-10.0)
[2023-09-30 01:04] LABS: ETHYL ALCOHOL (ETHANOL) 0.006 % (0.000-0.010)
[2023-09-30 01:06] LABS: ALBUMIN 4.5 G/DL (3.2-5.2); ALKALINE PHOSPHATASE 52 U/L (46-116); ALT/SGPT 22 U/L (7.0-40); AST/SGOT 17 U/L (<34); BILIRUBIN,DIRECT 0.2 MG/DL (<0.4); BILIRUBIN,TOTAL 0.6 MG/DL (0.3-1.2); BLOOD UREA NITROGEN 9 MG/DL (9-23); CALCIUM LEVEL 9.5 MG/DL (8.5-10.1); CARBON DIOXIDE LEVEL 26 MMOL/L (20-31); CHLORIDE LEVEL 107 MMOL/L (98-107); CREATININE FOR GFR 0.93 MG/DL (0.70-1.30); GLOMERULAR FILTRATION RATE > 60.0 (>60); GLUCOSE, FASTING 109 MG/DL (60-100); POTASSIUM SERUM 4.5 MMOL/L (3.5-5.1); SALICYLATE LEVEL < 3.0 MG/DL (<30); SODIUM LEVEL 140 MMOL/L (136-145); TOTAL PROTEIN 7.2 G/DL (5.7-8.2)
[2023-09-30 01:08] LABS: THYROID STIMULATING HORMONE 2.729 uIU/ML (0.55-4.78)
[2023-09-30] MEDS: ACETAMINOPHEN TAB 650MG DOSE (2X325MG) PO ONE (03:27)
[2023-09-30 03:54] LABS: BARBITURATES URINE NEGATIVE (NEGATIVE); BENZODIAZEPINES URINE NEGATIVE (NEGATIVE); CANNABINOIDS URINE NEGATIVE (NEGATIVE); COCAINE METABOLITE URINE NEGATIVE (NEGATIVE); METHADONE URINE NEGATIVE (NEGATIVE); OPIATES URINE NEGATIVE (NEGATIVE); PHENCYCLIDINE URINE NEGATIVE (NEGATIVE)
[2023-09-30 03:58] LABS: AMPHETAMINES LEVEL URINE POSITIVE (NEGATIVE)
[2023-09-30] MEDS: hydrOXYzine 50 MG TAB PO STA (04:52)
[2023-09-30] MEDS ORDERED: OLAN1TAB20 PO (10:23)
[2023-09-30] MEDS ORDERED: MAGN400T2 PO (10:23)
[2023-09-30] MEDS ORDERED: MULTTAB61 PO (10:23)
[2023-09-30] MEDS ORDERED: SERT-141 PO (10:23)
[2023-09-30] MEDS ORDERED: ELIQ5TAB PO (10:23)
[2023-09-30] MEDS ORDERED: BUSP15TA47 PO (10:23)
[2023-09-30] MEDS ORDERED: TRAZ-257 PO (10:23)
[2023-09-30] MEDS ORDERED: HOME MED LIST COMPLETE! XX SCH (10:25)
[2023-09-30] MEDS ORDERED: MAALOX 30 ML SUSP *UDC PO PRN (15:05)
[2023-09-30] MEDS ORDERED: MOM 30ML SUSPENSION UDC PO PRN (15:05)
[2023-09-30] MEDS ORDERED: IBUPROFEN 400MG TAB PO PRN (15:05)
[2023-09-30] MEDS ORDERED: ACETAMINOPHEN TAB 650MG DOSE (2X325MG) PO PRN (15:05)
[2023-09-30 18:03] VITALS: BP 153/91; TEMP 98.3; O2SAT 97
[2023-09-30] MEDS: diphenhydrAMINE 25MG CAP PO PRN (20:26)
[2023-09-30] MEDS: traZODone 50 MG TAB PO PRN (20:26)
[2023-09-30] MEDS: APIXABAN 5 MG TAB (ELIQUIS) PO ONE (23:51)
[2023-10-01] MEDS: OLANZapine 10 MG TAB PO SCH (00:38)
[2023-10-01] MEDS: traZODone 50 MG TAB PO ONE (00:38)
[2023-10-01 06:14] VITALS: BP 109/60; TEMP 97; O2SAT 96
[2023-10-01] MEDS: SERTRALINE HCL 25 MG TABLET PO SCH (09:53)
[2023-10-01] MEDS: APIXABAN 5 MG TAB (ELIQUIS) PO SCH (13:20)
[2023-10-01] MEDS: busPIRone 5 MG TAB PO SCH (13:20)
[2023-10-01 18:38] VITALS: BP 142/74; TEMP 98.3
[2023-10-01] MEDS: traZODone 100 MG TAB PO SCH (20:44)
[2023-10-02 06:27] VITALS: BP 102/70; TEMP 97.4; O2SAT 100
[2023-10-02] MEDS: OLANZapine 5 MG TAB PO SCH (09:34)
[2023-10-02 18:23] VITALS: BP 120/59; TEMP 98.4
[2023-10-03 06:32] VITALS: BP 117/60; TEMP 97.8; O2SAT 96
[2023-10-03 18:19] VITALS: BP 140/76; TEMP 98.4
[2023-10-04 06:34] VITALS: BP 124/69; TEMP 97.4; O2SAT 96
[2023-10-04 09:16] LABS: CHOLESTEROL RISK RATIO 3.63 (<5); HDL CHOLESTEROL 40.4 MG/DL (>40); LDL CHOLESTEROL 79.4 MG/DL (<100); NON-HDL-C 106.6 MG/DL
[2023-10-04] MEDS ORDERED: TRAZ-257 PO (09:35)
[2023-10-04] MEDS ORDERED: SERT25TA21 PO (09:35)
[2023-10-04] MEDS ORDERED: OLAN1TAB20 PO (09:35)
[2023-10-04] MEDS ORDERED: OLAN1TAB16 PO (09:35)
== END 2023-10-04 11:22 | disposition home or self-care (01) | DRG 776 ==
LOC: M ED 00:01 → M ED INP 15:05 → M PSY 17:58
PROVIDERS: ADMIT Student in an Organized Health Care Education/Training Program; ATTEND Student in an Organized Health Care Education/Training Program
DX: F15.14 Other stimulant abuse with stimulant-induced mood disorder (principal); R45.851 Suicidal ideations; F17.200 Nicotine dependence, unspecified, uncomplicated; F15.120 Other stimulant abuse with intoxication, uncomplicated; Z86.718 Personal history of other venous thrombosis and embolism; Z79.899 Other long term (current) drug therapy